=== PATIENT | female | born 1940 | race Caucasian/White ===

== ENCOUNTER 2022-07-08 18:24 | Emergency (ER) | payer MEDICARE, OTHER, SELFPAY ==
--- NOTE | ~2022-07-08 | CT_ITS ---
EXAMINATION: CT ABDOMEN AND PELVIS WITHOUT CONTRAST CLINICAL INFORMATION: Left lower quadrant pain. Severe midline back pain. COMPARISON: None available. TECHNIQUE: Multidetector volumetric imaging was performed from the superior aspect of the liver through the pubic symphysis. Sagittal and coronal reformatted images were obtained on the technologist's workstation. This CT examination was performed using dose optimization techniques as appropriate, variously including the following: *Automated exposure control *Adjustment of mA and/or kV according to patient size (this includes techniques or standardized protocols for targeted exams where dose is matched to indication/reason for exam; i.e. extremities or head) *Use of iterative reconstruction technique DLP: 541 mGy-cm FINDINGS: LUNG BASES: The visualized lung bases are unremarkable. Moderate volume of coronary artery calcifications. LIVER, GALLBLADDER, AND BILIARY TREE: The liver is normal in size, shape, and attenuation. No focal hepatic lesion or biliary ductal dilatation is present. The gallbladder is unremarkable with no evidence of radiopaque gallstones, gallbladder wall thickening, or obvious pericholecystic inflammatory changes. PANCREAS: Unremarkable. SPLEEN: Unremarkable. ADRENAL GLANDS: Unremarkable. KIDNEYS AND URETERS: The kidneys are normal in size, shape, and attenuation. No hydronephrosis, hydroureter, or calculi seen. No perinephric stranding. Exophytic 4.2 cm upper pole cyst left kidney. No follow-up imaging is recommended for simple renal cyst. BLADDER: Unremarkable. GASTROINTESTINAL TRACT: There are scattered diverticula of the left colon. There is no diverticulitis. There is no bowel wall thickening /edema. There is no bowel obstruction. There is a moderate volume of stool in the colon. The appendix is nonvisualized . The small bowel loops are unremarkable. The stomach is normal. There is no hiatal hernia. ABDOMINAL WALL: No significant hernia is appreciated. LYMPH NODES: Normal. VASCULAR: Atherosclerotic vascular calcifications in the abdomen and pelvis. There is no aneurysm. PELVIC VISCERA: Status post cholecystectomy. OSSEOUS STRUCTURES: Degenerative spondylosis spine. Mild compression deformities superior endplate L2, T12 and T11 vertebrae which are likely chronic. CT/CT abdomen pelvis wo IV con IMPRESSION: No acute abnormality CT scan abdomen pelvis. Fleischner guidelines were followed.
--- NOTE | 2022-07-08 19:03 | ED.BACK ---
HPI - Back Pain/Injury General Chief Complaint: Extremity Problem <JAKE Cuellar - Last Filed: 07/08/22 19:08> Stated Complaint: Back pain <JAKE Cuellar - Last Filed: 07/08/22 19:08> Time Seen by Provider: 07/08/22 22:50 <JAKE Cuellar - Last Filed: 07/08/22 19:08> Source: patient <Osiel Yang MD - Last Filed: 07/08/22 23:44> Mode of arrival: ambulatory <Osiel Yang MD - Last Filed: 07/08/22 23:44> Limitations: no limitations <Osiel Yang MD - Last Filed: 07/08/22 23:44> History of Present Illness HPI Narrative: Patient 81 years old history of arthritis chronic back problems complaining of increased back pain for last few days after lifting stops at home also feels the urine is cloudy and strong odor was treated with antibiotic for UTI <Osiel Yang MD - Last Filed: 07/08/22 23:44> Related Data Home Medications: Previous Rx's Medication Instructions Recorded tramadol 50 mg tablet 50 mg PO Q6H PRN pain #20 tabs 07/08/22 <JAKE Cuellar - Last Filed: 07/08/22 19:08> Allergies/Adverse Reactions: Allergies Allergy/AdvReac Type Severity Reaction Status Date / Time Penicillins Allergy Hives Verified 07/08/22 19:04 <JAKE Cuellar - Last Filed: 07/08/22 19:08> Review of Systems Review of Systems: Yes all other systems are reviewed and are negative <Osiel Yang MD - Last Filed: 07/08/22 23:44> PMFSH Past Medical History Medical History: Medical History Diabetes Hypertension Vertigo <JAKE Cuellar - Last Filed: 07/08/22 19:08> Social History Social History: Social History Alcohol intake: never Smoked in Last 30 Days: No Use of substances other than those prescribed or required for medical reasons: No Advance Directives: No Advance Directives Information Provided: No <JAKE Cuellar - Last Filed: 07/08/22 19:08> Physical Exam Vital Signs: Vital Signs: Last Vital Signs Temp 99 F 07/08/22 19:04 Pulse 72 07/08/22 21:12 Resp 18 07/08/22 21:12 BP 158/99 H 07/08/22 21:12 Pulse Ox 96 07/08/22 21:12 O2 Del Method Room Air 07/08/22 21:12 BMI result Body Mass Index 28.7 <JAKE Cuellar - Last Filed: 07/08/22 19:08> Vital Signs: Last Vital Signs Temp 99 F 07/08/22 19:04 Pulse 72 07/08/22 21:12 Resp 18 07/08/22 21:12 BP 158/99 H 07/08/22 21:12 Pulse Ox 96 07/08/22 21:12 O2 Del Method Room Air 07/08/22 21:12 BMI result Body Mass Index 28.7 <Osiel Yang MD - Last Filed: 07/08/22 23:44> Appearance: Alert. Oriented X3. No acute distress. Eyes: PERRLA, No Nystagmus ENT: Pharynx normal. Oral Mucosa moist Neck: Normal inspection. Neck supple. CVS: Normal heart rate and rhythm. Pulses normal. Respiratory: No respiratory distress. Equal air entry bilateral, no wheezing/rales/rhonchi Abdomen: Soft and nontender. Bowel sounds are present, no mass palpable, no CVA tenderness Skin: Skin warm and dry. Normal skin color. Normal skin turgor. Extremities: No lower extremity edema. No calf tenderness back: Diffuse tenderness no focal deformity or tenderness SLR negative Neuro: Oriented X 3. No motor deficit. No sensory deficit.No cerebellar signs , cranial nerves II-XII intact <Osiel Yang MD - Last Filed: 07/08/22 23:44> Course Course Course Narrative: RME - 81 y/o female with history of diabetes, recurrent UTIs who presents to the ER for evaluation of middle to lower back pain that started today after lifting. She reports the pain is across her entire lower back. She has midline tenderness of the lower thoracic spine and lumbar spine. In addition patient reports foul smelling urine and urinary frequency for the last several weeks, she has completed several courses of abx, last was macrobid. No fever, N/V/D or abdominal pain. <JAKE Cuellar - Last Filed: 07/08/22 19:08> Medical Decision Making Medical Decision Making [facility] Narrative: Patient's CT scan of the abdomen negative for acute labs are stable discharge patient home tramadol for chronic low back pain <Osiel Yang MD - Last Filed: 07/08/22 23:44> Lab Data [facility] Lab Attestation statement: I reviewed the patient's lab results. <Osiel Yang MD - Last Filed: 07/08/22 23:44> Result Diagrams: 07/08/22 19:53 07/08/22 19:53 <JAKE Cuellar - Last Filed: 07/08/22 19:08> Labs: Lab Results 07/08/22 07/08/22 07/08/22 Range/Units 19:53 19:53 19:53 WBC 8.6 (4.8-10.8) X10*3/uL RBC 4.25 (4.20-5.50) X10*6/uL Hgb 12.8 (12.0-16.0) g/dl Hct 39.9 (37.0-47.0) % MCV 93.9 (80.0-98.0) fL MCH 30.1 (27.0-33.0) pg MCHC 32.1 (31.0-35.0) g/dl RDW 12.8 (11.0-16.0) % Plt Count 191 (160-400) X10*3/uL MPV 10.6 (9.4-12.3) fL Immature Gran % (Auto) 2.9 H (0.0-0.4) % Neut % (Auto) 55.9 (45-73) % Lymph % (Auto) 29.6 (20-40) % [place] % (Auto) 8.2 (2-11) % Eos % (Auto) 2.4 (0-4) % Baso % (Auto) 1.0 (0-2) % Lymph # (Auto) 2.6 (1.2-4.9) X10*3/uL [place] # (Auto) 0.7 (0.1-1.2) X10*3/uL Eos # (Auto) 0.2 (0.0-0.4) X10*3/uL Baso # (Auto) 0.1 (0.0-0.2) X10*3/uL Abs Immat Gran (auto) 0.25 H (0.00-0.03) X10*3/uL Absolute Neuts (auto) 4.8 (2.0-8.3) x10*3/uL Absolute Nucleated RBC 0.000 (0.0-0.012) X10*3/uL Nucleated RBC % (auto) 0.0 (0.0-0.2) /100WBC Sodium 140 (135-145) mmol/L Potassium 4.5 (3.3-5.1) mmol/L Chloride 105 (96-108) mmol/L Carbon Dioxide 25 (22-29) mmol/L Anion Gap 15 (12-20) BUN 21 H (9-16) mg/dL Creatinine 1.06 (0.5-1.4) mg/dL Estim Creat Clear Calc 36.9 Estimated GFR 50 Random Glucose 301 H (60-115) mg/dL Calcium 9.6 (8.4-10.2) mg/dL Magnesium 1.9 (1.6-2.6) mg/dL Total Bilirubin 0.3 (0.0-1.0) mg/dL Direct Bilirubin 0.1 (0.0-0.5) mg/dL AST 13 (5-31) U/L ALT 11 (0-31) U/L Alkaline Phosphatase 98 (39-117) U/L Total Protein 7.0 (6.5-8.0) g/dL Albumin 4.0 (3.5-5.0) g/dL Urine Color Yellow Urine Appearance Cloudy Urine pH 5.0 (5.0-9.0) Ur Specific [place] >= 1.030 H (1.005-1.025) Urine Protein Trace (Neg-Trace) mg/dL Urine Glucose (UA) >=1000 H (Negative) mg/dL Urine Ketones Trace (Negative) mg/dL Urine Blood Negative (Negative) Urine Nitrite Negative (Negative) Ur Leukocyte Esterase Negative (Negative) Urine RBC 0-2 (0-2) /HPF Urine WBC 0-5 (0-5) /HPF Ur Squamous Epith Cells 0-2 (0-2) /HPF Urine Bacteria None Seen (None Seen) Hyaline Casts 0-2 (0-2) /LPF <JAKE Cuellar - Last Filed: 07/08/22 19:08> Lab Results 07/08/22 07/08/22 07/08/22 Range/Units 19:53 19:53 19:53 WBC 8.6 (4.8-10.8) X10*3/uL RBC 4.25 (4.20-5.50) X10*6/uL Hgb 12.8 (12.0-16.0) g/dl Hct 39.9 (37.0-47.0) % MCV 93.9 (80.0-98.0) fL MCH 30.1 (27.0-33.0) pg MCHC 32.1 (31.0-35.0) g/dl RDW 12.8 (11.0-16.0) % Plt Count 191 (160-400) X10*3/uL MPV 10.6 (9.4-12.3) fL Immature Gran % (Auto) 2.9 H (0.0-0.4) % Neut % (Auto) 55.9 (45-73) % Lymph % (Auto) 29.6 (20-40) % [place] % (Auto) 8.2 (2-11) % Eos % (Auto) 2.4 (0-4) % Baso % (Auto) 1.0 (0-2) % Lymph # (Auto) 2.6 (1.2-4.9) X10*3/uL [place] # (Auto) 0.7 (0.1-1.2) X10*3/uL Eos # (Auto) 0.2 (0.0-0.4) X10*3/uL Baso # (Auto) 0.1 (0.0-0.2) X10*3/uL Abs Immat Gran (auto) 0.25 H (0.00-0.03) X10*3/uL Absolute Neuts (auto) 4.8 (2.0-8.3) x10*3/uL Absolute Nucleated RBC 0.000 (0.0-0.012) X10*3/uL Nucleated RBC % (auto) 0.0 (0.0-0.2) /100WBC Sodium 140 (135-145) mmol/L Potassium 4.5 (3.3-5.1) mmol/L Chloride 105 (96-108) mmol/L Carbon Dioxide 25 (22-29) mmol/L Anion Gap 15 (12-20) BUN 21 H (9-16) mg/dL Creatinine 1.06 (0.5-1.4) mg/dL Estim Creat Clear Calc 36.9 Estimated GFR 50 Random Glucose 301 H (60-115) mg/dL Calcium 9.6 (8.4-10.2) mg/dL Magnesium 1.9 (1.6-2.6) mg/dL Total Bilirubin 0.3 (0.0-1.0) mg/dL Direct Bilirubin 0.1 (0.0-0.5) mg/dL AST 13 (5-31) U/L ALT 11 (0-31) U/L Alkaline Phosphatase 98 (39-117) U/L Total Protein 7.0 (6.5-8.0) g/dL Albumin 4.0 (3.5-5.0) g/dL Urine Color Yellow Urine Appearance Cloudy Urine pH 5.0 (5.0-9.0) Ur Specific [place] >= 1.030 H (1.005-1.025) Urine Protein Trace (Neg-Trace) mg/dL Urine Glucose (UA) >=1000 H (Negative) mg/dL Urine Ketones Trace (Negative) mg/dL Urine Blood Negative (Negative) Urine Nitrite Negative (Negative) Ur Leukocyte Esterase Negative (Negative) Urine RBC 0-2 (0-2) /HPF Urine WBC 0-5 (0-5) /HPF Ur Squamous Epith Cells 0-2 (0-2) /HPF Urine Bacteria None Seen (None Seen) Hyaline Casts 0-2 (0-2) /LPF <Osiel Yang MD - Last Filed: 07/08/22 23:44> Discharge Plan Discharge Clinical Impression: Low back pain <JAKE Cuellar - Last Filed: 07/08/22 19:08> Patient Disposition: Home, Self-Care <JAKE Cuellar - Last Filed: 07/08/22 19:08> Instructions: Chronic Back Pain (DC) <JAKE Cuellar - Last Filed: 07/08/22 19:08> Additional Instructions: Continue Tylenol and Take Tramadol 1 tablet every 8 hours for moderate to severe pain Follow with PCP <JAKE Cuellar - Last Filed: 07/08/22 19:08> Prescriptions: New tramadol 50 mg tablet 50 mg PO Q6H PRN (Reason: pain) Qty: 20 0RF <JAKE Cuellar - Last Filed: 07/08/22 19:08>
[2022-07-08 19:04] VITALS: BP 152/72; PULSE 71; RESP 18; TEMP 37.2; O2SAT 97; BMI 28.7
[2022-07-08 19:59] LABS: MANUAL DIFF FLAG NO
[2022-07-08 20:00] LABS: Basophils Absolute Auto 0.1 X10*3/uL (0.0-0.2); Eosinophils Absolute Auto 0.2 X10*3/uL (0.0-0.4); Eosinophils Percent Auto 2.4 % (0-4); Hematocrit 39.9 % (37.0-47.0); Hemoglobin 12.8 g/dl (12.0-16.0); Imm Gran Abs Auto 0.25 X10*3/uL (0.00-0.03); Imm Gran Pct Auto 2.9 % (0.0-0.4); Lymphocytes Absolute Auto 2.6 X10*3/uL (1.2-4.9); Lymphocytes Percent Auto 29.6 % (20-40); Mean Corpuscular HGB Conc 32.1 g/dl (31.0-35.0); Mean Corpuscular Hemoglobin 30.1 pg (27.0-33.0); Mean Corpuscular Volume 93.9 fL (80.0-98.0); Mean Platelet Volume 10.6 fL (9.4-12.3); Monocytes Absolute Auto 0.7 X10*3/uL (0.1-1.2); Monocytes Percent Auto 8.2 % (2-11); Neutrophils Absolute Auto 4.8 x10*3/uL (2.0-8.3); Neutrophils Percent Auto 55.9 % (45-73); Platelet Count 191 X10*3/uL (160-400); Red Blood Count 4.25 X10*6/uL (4.20-5.50); Red Cell Distribution Width 12.8 % (11.0-16.0); White Blood Count 8.6 X10*3/uL (4.8-10.8)
[2022-07-08 20:07] LABS: Appearance Urine Cloudy; Color Urine Yellow; Glucose Urine UA >=1000 mg/dL (Negative); Leukocyte Esterase Urine Negative (Negative); Nitrite Urine Negative (Negative); Specific Gravity - Urine >= 1.030 (1.005-1.025); UMIC TRIGGER UACC YES; Urine Blood Negative (Negative); Urine Ketones Trace mg/dL (Negative); Urine Protein Trace mg/dL (Neg-Trace)
[2022-07-08 20:17] LABS: Alanine Aminotransferase 11 U/L (0-31); Alkaline Phosphatase 98 U/L (39-117); Anion Gap 15 (12-20); Aspartate Amino Transferase 13 U/L (5-31); Bilirubin Direct 0.1 mg/dL (0.0-0.5); Bilirubin Total 0.3 mg/dL (0.0-1.0); Blood Urea Nitrogen 21 mg/dL (9-16); Calcium 9.6 mg/dL (8.4-10.2); Carbon Dioxide 25 mmol/L (22-29); Chloride 105 mmol/L (96-108); Creatinine Clr Calc Pharmacy 36.9; Estimated Glomerular Filt Rate 50; Glucose Random 301 mg/dL (60-115); Magnesium 1.9 mg/dL (1.6-2.6); Potassium 4.5 mmol/L (3.3-5.1); Sodium 140 mmol/L (135-145)
[2022-07-08 21:12] VITALS: BP 158/99; PULSE 72; RESP 18; O2SAT 96
--- NOTE | 2022-07-08 21:19 | PC.NURSE ---
pt a&ox3, hypertensive, other vss, reporting 10/10 stabbing back pain after lifting boxes at storage unit. resting quietly on stretching, pt pending CT results and ED provider. no new orders at this time.
[2022-07-08 21:31] LABS: RBC Urine 0-2 /HPF (0-2); Squamous Epithelial Cell Urine 0-2 /HPF (0-2); WBC Urine 0-5 /HPF (0-5)
[2022-07-08 21:32] LABS: Bacteria Urine None Seen (None Seen); Hyaline Casts Urine 0-2 /LPF (0-2)
[2022-07-08] MEDS: traMADoL HCL 50 MG TABLET PO (23:42)
== END 2022-07-08 23:54 | disposition home or self-care (01) ==
PROVIDERS: Physician Assistant; Emergency Provider Internal Medicine; PCP Internal Medicine
DX: R10.32 Left lower quadrant pain (principal); M54.50 Low back pain, unspecified; N39.0 Urinary tract infection, site not specified; Z79.899 Other long term (current) drug therapy
CPT/HCPCS: 36415; 74176; 80048; 80076; 81001; 81003; 83735; 85025; 99284

== ENCOUNTER 2022-07-11 23:06 | Emergency (ER) | payer MEDICARE, OTHER, SELFPAY ==
[2022-07-11 23:16] VITALS: BP 159/91; PULSE 77; RESP 18; TEMP 37; O2SAT 98; BMI 34.7
--- NOTE | 2022-07-11 23:25 | ED_ITS ---
HPI - Back Pain/Injury General Chief Complaint: Back Pain/Injury Stated Complaint: back pain Time Seen by Provider: 07/11/22 23:21 Source: patient Mode of arrival: EMS Limitations: no limitations History of Present Illness HPI Narrative: 81-year-old female who presents emergency department for evaluation mid to lower back pain. The patient states that on 07/07/2022 she was cleaning out her storage room. She states she was lifting multiple plastic containers. She does not recount any specific injury while she was lifting. The next day she woke up and she had severe back pain. She states that she was having difficulty moving. She states the pain was located across mid to lower back. she states she also had recently been treated for urinary tract . She states she was having a foul-smelling urine but denied frequency, urgency or dysuria. She was seen in the our emergency department on 07/08/2022. The patient had normal laboratory evaluation and an unremarkable urinalysis. She had a CT scan of the abdomen pelvis which revealed no acute findings, the radiologist did note following: OSSEOUS STRUCTURES: Degenerative spondylosis spine. Mild compression deformities superior endplate L2, T12 and T11 vertebrae which are likely chronic. The patient was discharged home with a prescription for tramadol. She states that she has continued to take ibuprofen 400 mg every 6 hours and extra-strength Tylenol every 6 hours. She states the tramadol was not helping her pain and made her feel bad. She states she still is having significant amount of back pain which is worse with movement and she is unable to sleep at night. she denied fever chills. She denied loss of bowel or bladder control. She came to emergency department by ambulance for evaluation. Related Data Previous Rx's Medication Instructions Recorded tramadol 50 mg tablet 50 mg PO Q6H PRN pain #20 tabs 07/08/22 morphine 15 mg immediate release 15 mg PO Q6H PRN pain #10 tabs 07/12/22 tablet Allergies Allergy/AdvReac Type Severity Reaction Status Date / Time Penicillins Allergy Hives Verified 07/08/22 19:04 Review of Systems Review of Systems: Yes all other systems are reviewed and are negative [facility] Past Medical History [facility] Narrative: Social history: She lives at home by herself. She denies tobacco, alcohol and drug use. Medical History Diabetes Hypertension Vertigo Social History Social History Alcohol intake: never Advance Directives: No Advance Directives Information Provided: Yes Physical Exam Vital Signs: Vital Signs: Last Vital Signs Temp 98.6 F 07/11/22 23:26 Pulse 73 07/11/22 23:26 Resp 18 07/12/22 00:23 BP 169/86 H 07/11/22 23:26 Pulse Ox 95 07/11/22 23:26 O2 Del Method Room Air 07/11/22 23:26 BMI result Body Mass Index 34.7 Medications Administered Discontinued Medications Generic Name Dose Route Start Last Admin Trade Name Ami PRN Reason Stop Dose Admin Morphine Sulfate 4 mg 07/11/22 23:41 07/12/22 00:23 Morphine Sulfate 4 Mg/Ml Cartridge IVPUSH 07/11/22 23:42 4 mg ONCE STA Administration Protocol Medical Decision Making Medical Decision Making MDM Narrative: 81-year-old female who presents emergency department for evaluation of mid to lower back pain which started the day after she moved [employer] on 07/07/2022. she had storage. She was seen In this emergency department on 07/08/2022 and had normal blood work, negative urinalysis and this was and that was consistent with degenerative change of her spine but no acute findings. Patient has been taking ibuprofen, Tylenol and tramadol with no improvement of her pain. on her examination, she did have significant tenderness palpation of the lumbar sacral paraspinal muscles but no point tenderness palpation of her vertebrae. She is able to lift her lower extremities against gravity but this causes increased pain in her back. At this time I do not think that she needs repeat blood work , urinalysis or imaging. Patient's presentation is consistent with musculoskeletal strain secondary to lift containers. She was ordered to get morphine 4 mg IV. 0414: Patient did feel better after receiving IV morphine. She is able to walk around the emergency department without any difficulty. Patient did developed nausea and was given Zofran 4 mg ODT. Patient will be discharged home and advised to take ibuprofen and Tylenol for pain not relieved by these medications she was prescribed morphine. She was advised to stop taking the tramadol. She was given printed and verbal instructions and discharged home. Differential Diagnosis Differential diagnosis includes was not limited to degenerative disc disease, degenerative spine disease, musculoskeletal strain, musculoskeletal sprain Admission/Observation Consideration of admission/observation: Escalation of care including admission/observation considered Independent Historian Clinical information obtained from an independent historian. History obtained from or confirmed by: Other (Friend who was staying with the patient) Discharge Plan Discharge Clinical Impression: Acute thoracic myofascial strain Qualifiers: Encounter type: subsequent encounter Qualified Code(s): S29.019D - Strain of muscle and tendon of unspecified wall of thorax, subsequent encounter Acute lumbar myofascial strain Qualifiers: Encounter type: subsequent encounter Qualified Code(s): S39.012D - Strain of muscle, fascia and tendon of lower back, subsequent encounter Patient Disposition: Home, Self-Care Instructions: Acute Low Back Pain (ED) Additional Instructions: Your blood work from your previous visit was normal. The CT scan of your abdomen pelvis revealed no significant/new bony abnormalities or discs abnormalities to explain your pain. Your pain is related to straining the muscles of your thoracic and lumbar back. Take ibuprofen 200 mg pills, 2 pills every 6 hours as needed for pain. Take Tylenol (acetaminophen) 2 pills every 6 hours as needed for pain. For pain not relieved by ibuprofen or Tylenol take morphine 15 mg pills, 1 pill every 4 hours as needed for pain. This medication will make you sleepy, do not drive or work while taking this medication. Morphine is a narcotic medication and can be addicting. If you are concerned about addiction you can ask the pharmacist for less pills or do not get this prescription filled. Follow-up with your doctor in 2 days. Please return to the emergency department if your symptoms get worse or if you develop any symptoms that are concerning to you. Prescriptions: New morphine 15 mg tablet 15 mg PO Q6H PRN (Reason: pain) Qty: 10 0RF Rx Instructions: The patient may ask for partial fill; Partial Fill upon patient request. No Action tramadol 50 mg tablet 50 mg PO Q6H PRN (Reason: pain) Qty: 20 0RF
[2022-07-11 23:26] VITALS: BP 169/86; PULSE 73; RESP 18; TEMP 37; O2SAT 95
[2022-07-12 00:23] VITALS: RESP 18
[2022-07-12] MEDS: Morphine Sulfate 4 MG/ML CARTRIDGE IVPUSH (00:23)
[2022-07-12] MEDS: Ondansetron ODT 4 MG TAB.RAPDIS TRANSLINGU (04:27)
== END 2022-07-12 04:39 | disposition home or self-care (01) ==
PROVIDERS: Emergency Provider Emergency Medicine Emergency Medical Services
DX: S29.019D Strain of muscle and tendon of unspecified wall of thorax, subsequent encounter (principal); S39.012D Strain of muscle, fascia and tendon of lower back, subsequent encounter; X50.0XXD Overexertion from strenuous movement or load, subsequent encounter
CPT/HCPCS: 96374; 99284; J2270